=== PATIENT | male | born 2000 | race Hispanic/Latino ===

== ENCOUNTER 2022-09-14 19:28 | Emergency (ER) | payer SELFPAY ==
[~2022-09-14] VITALS: Ht 162.6 cm; Wt 54.4 kg
[2022-09-14 20:08] VITALS: O2SAT 100
== END 2022-09-14 22:10 | disposition home or self-care (01) ==
LOC: ER 20:03
DX: R06.02 Shortness of breath (principal)
CPT/HCPCS: 71046; 93005; 99283